=== PATIENT | female | born 1945 | race Caucasian/White ===

== ENCOUNTER 2017-08-05 05:15 | Day surgery (SDC) | payer MEDICARE ==
[2017-08-01 15:35] VITALS: BP 169/79
[~2017-08-05] VITALS: Ht 154.9 cm; Wt 97.0 kg
[~2017-08-05 05:15] MED LIST: ALPR-475 PO; CHOL200074 PO; CITA20TA9 PO; CYCL-259 PO; ENAL20TA68 PO; FLUT12AE INH; HYDR25TA6 PO; IPRA12.9 INH; LANS15CA5 PO; LOPE2CAP PO; LORA10TA3 PO; METO25TA91 PO; OMEG1CAP26 PO; OMEP20TA62 PO; ROSU10TA PO; TRAZ50TA18 PO; UBID50TA3 PO; WARF2TAB7 PO
[2017-08-05] MEDS ORDERED: LACTATED RINGERS 1,000 ML IV SCH (05:58)
[2017-08-05 06:05] VITALS: BP 169/79
[2017-08-05] MEDS ORDERED: NEOSPORIN OINT. PKT 1 PACKET ONE (06:23)
[2017-08-05] MEDS ORDERED: BUPIVACAINE/PF 0.5% ONE (06:23)
[2017-08-05] MEDS ORDERED: BACITRACIN 50,000 UNIT ONE (06:24)
[2017-08-05] MEDS ORDERED: CLINDAMYCIN 150 MG/ML, 6ML ONE (06:41)
[2017-08-05] MEDS ORDERED: MIDAZOLAM 1 MG/ML, 2ML ONE (06:41)
[2017-08-05] MEDS ORDERED: FENTANYL PF 100 MCG/2ML ONE ×2 (06:41→08:20)
[2017-08-05 06:45] LABS: PROTHROMBIN TIME 10.4 Seconds (9.6-11.5)
[2017-08-05] MEDS ORDERED: PROPOFOL 50 ML ONE ×2 (06:52→07:39)
[2017-08-05] MEDS ORDERED: KETOROLAC 30 MG/1 ML ONE (06:53)
[2017-08-05] MEDS ORDERED: MIDAZOLAM 1 MG/ML, 2ML IV PRN (07:30)
[2017-08-05] MEDS ORDERED: ALBUTEROL SULFATE 2.5 MG/3 ML NPPB PRN (07:30)
[2017-08-05] MEDS ORDERED: ACETAMINOPHEN 325 MG TABLET PO PRN (07:30)
[2017-08-05] MEDS ORDERED: ONDANSETRON 2MG/ML, 2ML IVPush PRN (07:30)
[2017-08-05] MEDS ORDERED: hydrALAzine 20 MG/ML, 1ML IV PRN (07:30)
[2017-08-05] MEDS ORDERED: ALBUTEROL/IPRATROPIUM 2.5MG/0.5MG, 3 ML NPPB PRN (07:30)
[2017-08-05] MEDS ORDERED: METOPROLOL 1 MG/ML, 5ML IV PRN (07:30)
[2017-08-05] MEDS ORDERED: HYDROcodone/APAP 7.5-325MG/15ML UDC PO PRN (07:30)
[2017-08-05] MEDS ORDERED: MEPERIDINE/PF 25MG/0.5ML IVPush PRN (07:30)
[2017-08-05] MEDS ORDERED: EPHEDRINE 50 MG/ML, 1ML IVPush PRN (07:30)
[2017-08-05] MEDS ORDERED: OXYcodone 5 MG/5 ML ORAL.SOL UDC PO PRN ×2 (07:30→11:30)
[2017-08-05] MEDS ORDERED: DIAZEPAM 5 MG/ML, 2ML IVPush PRN (07:30)
[2017-08-05] MEDS ORDERED: HYDROmorphone 1 MG/ML, 1ML IV PRN (07:30)
[2017-08-05] MEDS ORDERED: FENTANYL PF 100 MCG/2ML IV PRN (07:30)
[2017-08-05] MEDS ORDERED: LABETALOL 5MG/ML, 20ML IV PRN (07:30)
[2017-08-05] MEDS ORDERED: ACETAMINOPHEN 650 MG/20.3 ML UDC ONE (08:20)
[2017-08-05] MEDS ORDERED: OXYcodone 5 MG/5 ML ORAL.SOL UDC ONE (08:20)
[2017-08-05] MEDS ORDERED: CEFAZOLIN 1,000 MG ONE (10:00)
[2017-08-05] MEDS ORDERED: PROPOFOL 10 MG/ML, 20ML ONE (10:00)
[2017-08-05] MEDS ORDERED: DEXAMETHASONE 4 MG/ML, 1ML ONE (10:00)
[2017-08-05] MEDS ORDERED: ONDANSETRON 2MG/ML, 2ML ONE (10:00)
[2017-08-05] MEDS ORDERED: OXYcodone/APAP 5/325MG TABLET PO PRN (11:30)
== END 2017-08-05 13:35 | disposition home or self-care (01) ==
LOC: OUT 05:15 → MERGE 07:00 → OUT 13:35
PROVIDERS: ATTEND Orthopaedic Surgery
DX: M18.11 Unilateral primary osteoarthritis of first carpometacarpal joint, right hand (principal); J45.909 Unspecified asthma, uncomplicated; K21.9 Gastro-esophageal reflux disease without esophagitis; I25.10 Atherosclerotic heart disease of native coronary artery without angina pectoris; I10 Essential (primary) hypertension; G47.33 Obstructive sleep apnea (adult) (pediatric); Z88.1 Allergy status to other antibiotic agents; Z88.0 Allergy status to penicillin; Z88.8 Allergy status to other drugs, medicaments and biological substances; Z85.3 Personal history of malignant neoplasm of breast
CPT/HCPCS: 25447; 26480; 36415; 73140; 76000; 85610; 85730; C1713; J0690; J1100; J1885; J2250; J2405; J2704; J3010; J3490; J7120

== ENCOUNTER 2017-08-07 17:21 | Inpatient (IN) | payer MEDICARE ==
[~2017-08-07] VITALS: Ht 156.2 cm; Wt 103.4 kg
[2017-08-07] MEDS ORDERED: ONDANSETRON 2MG/ML, 2ML ONE (18:20)
[2017-08-07] MEDS ORDERED: ONDANSETRON 2MG/ML, 2ML IVPush ONE (18:30)
[2017-08-07] MEDS ORDERED: SODIUM CHLORIDE 0.9% 1,000ML IVBOLUS ONE (18:30)
[2017-08-07] MEDS ORDERED: SODIUM CHLORIDE FLUSH 10ML SYR IVF ONE (18:30)
[2017-08-07 18:42] LABS: BASOPHILS # (AUTO) 0.04 x10^3/uL (0-0.1); BASOPHILS % (AUTO) 1 % (0-1); EOSINOPHILS # (AUTO) 0.09 x10^3/uL (0-0.4); EOSINOPHILS % (AUTO) 1 % (1-7); INTERNATIONAL NORMALIZED RATIO 1.03 (0.93-1.1); LYMPHOCYTES # (AUTO) 1.71 x10^3/uL (1-3.4); LYMPHOCYTES % (AUTO) 22 % (22-44); MEAN CORPUSCULAR HEMOGLOBIN 31.5 pg (27.0-34.8); MEAN CORPUSCULAR HGB CONC 33.1 g/dL (32.4-35.8); MEAN CORPUSCULAR VOLUME 95.1 fL (80-100); MEAN PLATELET VOLUME 7.4 fL (7.4-10.4); MONOCYTES # (AUTO) 0.85 x10^3/uL (0.2-0.8); MONOCYTES % (AUTO) 11 % (2-9); NEUTROPHILS # (AUTO) 4.91 x10^3/uL (1.8-6.8); NEUTROPHILS % (AUTO) 65 % (42-75); PLATELET COUNT 233 x10^3/uL (130-400); PROTHROMBIN TIME 10.7 Seconds (9.6-11.5); RED CELL DISTRIBUTION WIDTH 14.5 % (9.6-15.2)
[2017-08-07 18:43] LABS: MD NO
[2017-08-07 18:48] LABS: ALANINE AMINOTRANSFERASE 33 U/L (12-78); ALBUMIN 3.5 g/dL (3.4-5.0); ANION GAP 7 mmol/L (5-15); CALCIUM 8.2 mg/dL (8.5-10.1); CHLORIDE 99 mmol/L (98-107); CREATININE 0.85 mg/dL (0.55-1.02)
[2017-08-07 18:52] LABS: ALKALINE PHOSPHATASE 43 U/L (45-117); BILIRUBIN,TOTAL 0.9 mg/dL (0.2-1.0); TOTAL PROTEIN 6.9 g/dL (6.4-8.2); TROPONIN I 0.038 ng/mL (0.000-0.045)
[2017-08-07] MEDS ORDERED: HYDROmorphone 2 MG/ML, 1ML IVPush ONE (18:53)
[2017-08-07] MEDS ORDERED: HYDROmorphone 2 MG/ML, 1ML ONE (19:16)
[2017-08-07] MEDS ORDERED: methylPREDNISolone SOD SUCC 125 MG/2 ML ONE (19:40)
[2017-08-07] MEDS ORDERED: DIPHENHYDRAMINE 50 MG/ML, 1ML ONE (19:40)
[2017-08-07] MEDS ORDERED: methylPREDNISolone SOD SUCC 125 MG/2 ML IVPush STA (19:40)
[2017-08-07] MEDS ORDERED: DIPHENHYDRAMINE 50 MG/ML, 1ML IVPush ONE (20:00)
[2017-08-07] MEDS ORDERED: OMNIPAQUE 350 MG/ML, 100ML BOTTLE ONE (20:18)
[2017-08-07] MEDS ORDERED: ONDANSETRON 2MG/ML, 2ML IVPush PRN ×2 (21:30→22:00)
[2017-08-07] MEDS ORDERED: LABETALOL 5MG/ML, 20ML IVPush PRN (22:00)
[2017-08-07] MEDS ORDERED: GUAIFENESIN/DM 200-20MG, 10ML UDC PO PRN (22:00)
[2017-08-07] MEDS ORDERED: BISACODYL 10 MG SUPP PR PRN (22:00)
[2017-08-07] MEDS ORDERED: OXYcodone/APAP 5/325MG TABLET PO PRN (22:00)
[2017-08-07] MEDS ORDERED: HYDROcodone/APAP 5/325 TABLET PO PRN (22:00)
[2017-08-07] MEDS ORDERED: ONDANSETRON ODT 4 MG PO PRN (22:00)
[2017-08-07] MEDS ORDERED: CYCLOBENZAPRINE 10 MG TABLET PO PRN (22:30)
[2017-08-07 22:59] VITALS: BP 167/89
[2017-08-07 23:23] LABS: TROPONIN I 0.023 ng/mL (0.000-0.045)
[2017-08-08 00:19] LABS: RAPID INFLUENZA A Negative (Negative); RAPID INFLUENZA B Negative (Negative)
[2017-08-08] MEDS ORDERED: IPRATROPIUM 0.5 MG/2.5 ML INHA NPPB PRN (00:30)
[2017-08-08 01:00] LABS: MICROSCOPIC AUTO
[2017-08-08 01:09] LABS: CULTURE INDICATED? NO
[2017-08-08 02:00] VITALS: BP 143/75
[2017-08-08] MEDS: methylPREDNISolone SOD SUCC 125 MG/2 ML IVPush SCH ×3 (04:31→20:20)
[2017-08-08] MEDS: morphine SULFATE 10 MG/ML, 1ML IVPush PRN ×2 (04:39→10:21)
[2017-08-08 05:46] LABS: MEAN CORPUSCULAR HEMOGLOBIN 31.1 pg (27.0-34.8); MEAN CORPUSCULAR HGB CONC 33.3 g/dL (32.4-35.8); MEAN CORPUSCULAR VOLUME 93.3 fL (80-100); MEAN PLATELET VOLUME 7.8 fL (7.4-10.4); PLATELET COUNT 216 x10^3/uL (130-400); RED CELL DISTRIBUTION WIDTH 14.6 % (9.6-15.2)
[2017-08-08 05:48] LABS: ALBUMIN 3.5 g/dL (3.4-5.0); ANION GAP 7 mmol/L (5-15); CALCIUM 8.5 mg/dL (8.5-10.1); CHLORIDE 102 mmol/L (98-107)
[2017-08-08 05:55] LABS: ALANINE AMINOTRANSFERASE 29 U/L (12-78); ALKALINE PHOSPHATASE 42 U/L (45-117); BILIRUBIN,TOTAL 0.9 mg/dL (0.2-1.0); CREATININE 0.72 mg/dL (0.55-1.02); TOTAL PROTEIN 7.1 g/dL (6.4-8.2); TROPONIN I < 0.015 ng/mL (0.000-0.045)
[2017-08-08] MEDS ORDERED: IPRATROPIUM 0.5 MG/2.5 ML INHA HHN SCH (06:00)
[2017-08-08 06:28] LABS: MD YES
[2017-08-08 06:45] LABS: LYMPH#(MANUAL) 0.34 x10^3/uL (1-3.4); LYMPHS% (MANUAL) 6 % (22-44); MONOS#(MANUAL) 0.11 x10^3/uL (0.3-2.7); MONOS% (MANUAL) 2 % (2-9); SEG#(MANUAL) 5.24 x10^3/uL (1.8-6.8); SEGS% (MANUAL) 92 % (42-75)
[2017-08-08 06:46] LABS: <PLATELET ESTIMATE> ADEQUATE; <PLT MORPHOLOGY> NORMAL PLT MORPH; ANISOCYTOSIS 1+
[2017-08-08] MEDS ORDERED: METOPROLOL SUCCINATE 25 MG TAB.ER.24H PO SCH (09:00)
[2017-08-08 10:05] VITALS: BP 163/91
[2017-08-08] MEDS: OMEPRAZOLE 20 MG CAPSULE.DR PO SCH (10:14)
[2017-08-08] MEDS: SENNA/DOCUSATE TABLET PO SCH (10:14)
[2017-08-08] MEDS: CITALOPRAM 20 MG TABLET PO SCH (10:14)
[2017-08-08] MEDS: CHOLECALCIFEROL 1,000 UNIT TABLET PO SCH (10:14)
[2017-08-08] MEDS: FLUTICASONE FUROATE 100MCG/INH INH SCH (12:05)
[2017-08-08 14:11] VITALS: BP 146/74
[2017-08-08 17:45] LABS: INTERNATIONAL NORMALIZED RATIO 1.06 (0.93-1.1)
[2017-08-08] MEDS ORDERED: WARFARIN 5 MG TABLET PO-COUM ONE (18:00)
[2017-08-08 20:00] VITALS: BP 143/75
[2017-08-08] MEDS ORDERED: TRAZODONE 50MG TABLET PO SCH (21:00)
[2017-08-08] MEDS ORDERED: ATORVASTATIN 20 MG TABLET PO SCH (21:00)
[2017-08-08] MEDS ORDERED: HYDROcodone/APAP 5/325 TABLET PO ONE (21:00)
[2017-08-09] MEDS ORDERED: OXYC-302 PO (01:09)
[2017-08-09 02:00] VITALS: BP 145/80
[2017-08-09] MEDS: METOPROLOL SUCCINATE 25 MG TAB.ER.24H PO SCH ×2 (05:35→08:00)
[2017-08-09] MEDS: methylPREDNISolone SOD SUCC 125 MG/2 ML IVPush SCH ×2 (05:37→13:19)
[2017-08-09 05:42] LABS: INTERNATIONAL NORMALIZED RATIO 1.06 (0.93-1.1)
[2017-08-09 05:48] LABS: BASOPHILS # (AUTO) 0.02 x10^3/uL (0-0.1); BASOPHILS % (AUTO) 0 % (0-1); EOSINOPHILS # (AUTO) 0.02 x10^3/uL (0-0.4); EOSINOPHILS % (AUTO) 0 % (1-7); LYMPHOCYTES # (AUTO) 0.75 x10^3/uL (1-3.4); LYMPHOCYTES % (AUTO) 7 % (22-44); MD NO; MEAN CORPUSCULAR HEMOGLOBIN 31.4 pg (27.0-34.8); MEAN CORPUSCULAR HGB CONC 33.2 g/dL (32.4-35.8); MEAN CORPUSCULAR VOLUME 94.5 fL (80-100); MEAN PLATELET VOLUME 7.9 fL (7.4-10.4); MONOCYTES # (AUTO) 0.36 x10^3/uL (0.2-0.8); MONOCYTES % (AUTO) 3 % (2-9); NEUTROPHILS # (AUTO) 9.93 x10^3/uL (1.8-6.8); NEUTROPHILS % (AUTO) 90 % (42-75); PLATELET COUNT 236 x10^3/uL (130-400); RED BLOOD COUNT 3.94 x10^6/uL (3.82-5.3); RED CELL DISTRIBUTION WIDTH 14.6 % (9.6-15.2)
[2017-08-09 05:52] LABS: CALCIUM 8.7 mg/dL (8.5-10.1); CHLORIDE 103 mmol/L (98-107)
[2017-08-09 05:55] LABS: ANION GAP 6 mmol/L (5-15); CREATININE 0.71 mg/dL (0.55-1.02)
[2017-08-09 07:20] VITALS: BP 140/78
[2017-08-09] MEDS ORDERED: OXYcodone/APAP 5/325MG TABLET PO PRN (09:00)
[2017-08-09] MEDS: OMEPRAZOLE 20 MG CAPSULE.DR PO SCH (09:48)
[2017-08-09] MEDS: SENNA/DOCUSATE TABLET PO SCH (09:48)
[2017-08-09] MEDS: FLUTICASONE FUROATE 100MCG/INH INH SCH (09:48)
[2017-08-09] MEDS: CHOLECALCIFEROL 1,000 UNIT TABLET PO SCH (09:48)
[2017-08-09] MEDS: CITALOPRAM 20 MG TABLET PO SCH (09:48)
[2017-08-09 14:06] VITALS: BP 146/82
[2017-08-09] MEDS ORDERED: WARFARIN 5 MG TABLET PO-COUM ONE ×2 (14:30→18:00)
== END 2017-08-09 16:19 | disposition home or self-care (01) | DRG 291 ==
LOC: ED 22:05 → OBSVTOIN 22:15 → INTOOBSV 22:15 → EDIP 22:15 → 4EST 22:30
PROVIDERS: ADMIT Hospitalist; ATTEND Hospitalist
DX: I11.0 Hypertensive heart disease with heart failure (principal); J96.01 Acute respiratory failure with hypoxia; D68.69 Other thrombophilia; J44.1 Chronic obstructive pulmonary disease with (acute) exacerbation; I50.33 Acute on chronic diastolic (congestive) heart failure; I48.91 Unspecified atrial fibrillation; M19.90 Unspecified osteoarthritis, unspecified site; K21.9 Gastro-esophageal reflux disease without esophagitis; G47.33 Obstructive sleep apnea (adult) (pediatric); E78.5 Hyperlipidemia, unspecified; Z87.891 Personal history of nicotine dependence; Z88.6 Allergy status to analgesic agent; Z88.0 Allergy status to penicillin; Z90.13 Acquired absence of bilateral breasts and nipples; Z85.3 Personal history of malignant neoplasm of breast; Z82.3 Family history of stroke; Z79.899 Other long term (current) drug therapy; Z88.2 Allergy status to sulfonamides; Z88.8 Allergy status to other drugs, medicaments and biological substances; Z91.018 Allergy to other foods; Z91.048 Other nonmedicinal substance allergy status; Z90.49 Acquired absence of other specified parts of digestive tract; Z82.49 Family history of ischemic heart disease and other diseases of the circulatory system
CPT/HCPCS: 36415; 71045; 71275; 80048; 80053; 81001; 83605; 83735; 83880; 84145; 84439; 84484; 85025; 85610; 87040; 87400; 93005; 93306; 94660; 96361; 96374; 96375; J1170; J2405; Q9967; J1200; J2270; J2930; J7030

== ENCOUNTER 2017-08-11 07:26 | Emergency (ER) | payer MEDICARE ==
[~2017-08-11] VITALS: Ht 154.9 cm; Wt 100.0 kg
[~2017-08-11 07:26] MED LIST changes: +OXYC-302 PO
[2017-08-11] MEDS ORDERED: SODIUM CHLORIDE FLUSH 10ML SYR IVF ONE (08:00)
[2017-08-11] MEDS ORDERED: ALBUTEROL/IPRATROPIUM 2.5MG/0.5MG, 3 ML NPPB ONE (08:00)
[2017-08-11 08:13] LABS: BASOPHILS # (AUTO) 0.02 x10^3/uL (0-0.1); BASOPHILS % (AUTO) 0 % (0-1); EOSINOPHILS % (AUTO) 8 % (1-7); LYMPHOCYTES # (AUTO) 1.18 x10^3/uL (1-3.4); LYMPHOCYTES % (AUTO) 11 % (22-44); MD NO; MEAN CORPUSCULAR HEMOGLOBIN 31.4 pg (27.0-34.8); MEAN CORPUSCULAR HGB CONC 33.7 g/dL (32.4-35.8); MEAN CORPUSCULAR VOLUME 93.1 fL (80-100); MEAN PLATELET VOLUME 7.1 fL (7.4-10.4); MONOCYTES # (AUTO) 0.84 x10^3/uL (0.2-0.8); MONOCYTES % (AUTO) 8 % (2-9); NEUTROPHILS # (AUTO) 8.01 x10^3/uL (1.8-6.8); NEUTROPHILS % (AUTO) 73 % (42-75); PLATELET COUNT 273 x10^3/uL (130-400); RED BLOOD COUNT 4.07 x10^6/uL (3.82-5.3); RED CELL DISTRIBUTION WIDTH 14.5 % (9.6-15.2)
[2017-08-11 08:25] LABS: ALANINE AMINOTRANSFERASE 31 U/L (12-78); ALBUMIN 3.1 g/dL (3.4-5.0); ANION GAP 5 mmol/L (5-15); CALCIUM 7.9 mg/dL (8.5-10.1); CHLORIDE 97 mmol/L (98-107); CREATININE 0.73 mg/dL (0.55-1.02)
[2017-08-11] MEDS ORDERED: ALBUTEROL/IPRATROPIUM 2.5MG/0.5MG, 3 ML ONE (08:28)
[2017-08-11 08:30] LABS: ALKALINE PHOSPHATASE 41 U/L (45-117); BILIRUBIN,TOTAL 1.2 mg/dL (0.2-1.0); TOTAL PROTEIN 6.3 g/dL (6.4-8.2); TROPONIN I < 0.015 ng/mL (0.000-0.045)
[2017-08-11] MEDS ORDERED: IPRATROPIUM 0.5 MG/2.5 ML INHA ONE (08:30)
[2017-08-11 09:20] VITALS: BP 134/64
[2017-08-11] MEDS ORDERED: FAMOTIDINE 20 MG TABLET PO ONE (10:30)
[2017-08-11] MEDS ORDERED: OXYcodone/APAP 10/325MG TABLET PO ONE (10:30)
[2017-08-11] MEDS ORDERED: OXYcodone/APAP 10/325MG TABLET ONE (10:48)
[2017-08-11] MEDS ORDERED: FAMOTIDINE 20 MG TABLET ONE (10:48)
== END 2017-08-11 11:00 ==
LOC: ED 08:41
DX: J98.01 Acute bronchospasm (principal); J44.9 Chronic obstructive pulmonary disease, unspecified; I10 Essential (primary) hypertension; I48.91 Unspecified atrial fibrillation; J45.909 Unspecified asthma, uncomplicated
CPT/HCPCS: 36415; 71045; 80053; 83880; 84484; 85025; 93005; 94640; 99285; J7512; J7620

== ENCOUNTER → 2020-05-25 | Outpatient (CLI) | payer MEDICARE ==
[~2020-05-25] MED LIST changes: -ALPR-475 PO; +ALPR0.5T7 PO; +LORA-247 PO; -LORA10TA3 PO; -ROSU10TA PO; +ROSU10TA2 PO; -TRAZ50TA18 PO; +TRAZ50TA66 PO; -WARF2TAB7 PO; +WARF2TAB99 PO
== END | disposition home or self-care (01) ==
LOC: CVU 10:53
PROVIDERS: ATTEND Physician Assistant Medical
DX: I35.8 Other nonrheumatic aortic valve disorders (principal); I10 Essential (primary) hypertension; R06.00 Dyspnea, unspecified; R07.89 Other chest pain
CPT/HCPCS: 93306

== ENCOUNTER 2020-06-06 09:54 | Emergency (ER) | payer MEDICARE ==
[~2020-06-06] VITALS: Ht 162.6 cm; Wt 99.2 kg
[2020-06-06] MEDS ORDERED: SODIUM CHLORIDE 0.9% 1,000ML IVBOLUS ONE (10:30)
--- NOTE | 2020-06-06 10:44 | NUR ---
THIS IS A 75 YO F W/ C/O BLACK TARRY STOOL STARTING THIS MORNING. PT REPORTS HX OF DIARRHEA HOWEVER BLOOD CONCERNED HER THIS MORNING. PT HAD EPISODE OF BOWEL INCONTINENCE WHILE WAITING IN LOBBY. PT PROVIDED W/ GOWN AND BRIEF. PT REPORTS TAKING WARFARIN AT HOME. PT RESP EVEN AND UNLABORED, JACK.
--- NOTE | 2020-06-06 10:54 | NUR ---
PIV STARTED, LABS DRAWN AND PT MEDICATED PER EMAR. PT RESTING ON GURNEY W/ CALL LIGHT IN REACH AND SIDE RAILS UPX2. RESP EVEN AND UNLABORED, JACK.
[2020-06-06] MEDS ORDERED: ONDANSETRON 2MG/ML, 2ML ONE (10:55)
[2020-06-06] MEDS ORDERED: ONDANSETRON 2MG/ML, 2ML IVPush ONE (11:00)
[2020-06-06 11:08] LABS: INTERNATIONAL NORMALIZED RATIO 3.26 (0.93-1.1); PROTHROMBIN TIME 34.2 Seconds (9.6-11.5)
[2020-06-06 11:09] LABS: BASOPHILS % (AUTO) 1 % (0-1); EOSINOPHILS % (AUTO) 1 % (1-7); LYMPHOCYTES % (AUTO) 17 % (22-44); MEAN CORPUSCULAR HEMOGLOBIN 30.7 pg (27.0-34.8); MEAN CORPUSCULAR HGB CONC 33.1 g/dL (32.4-35.8); MEAN PLATELET VOLUME 7.2 fL (7.4-10.4); MONOCYTES % (AUTO) 8 % (2-9); NEUTROPHILS % (AUTO) 73 % (42-75); PLATELET COUNT 270 x10^3/uL (130-400); RED BLOOD COUNT 4.57 x10^6/uL (3.82-5.3); RED CELL DISTRIBUTION WIDTH 14.7 % (9.6-15.2)
[2020-06-06 11:11] LABS: MD NO
[2020-06-06 11:13] LABS: ALANINE AMINOTRANSFERASE 32 U/L (12-78); ANION GAP 7 mmol/L (5-15); CALCIUM 9.3 mg/dL (8.5-10.1); CHLORIDE 99 mmol/L (98-107)
--- NOTE | 2020-06-06 11:14 | NUR ---
PT ASSISTED TO BEDSIDE COMMODE.
[2020-06-06 11:15] LABS: ALKALINE PHOSPHATASE 46 U/L (45-117); CREATININE 0.93 mg/dL (0.55-1.02); TOTAL PROTEIN 7.6 g/dL (6.4-8.2)
--- NOTE | 2020-06-06 11:19 | NUR ---
PT REPORTS UNABLE TO HAVE BM AND JUST PASSED GAS, WOULD LIKE TO WALK AROUND ROOM AND TRY AGAIN. RESP EVEN AND UNLABORED, JACK.
--- NOTE | 2020-06-06 11:42 | NUR ---
PT REPORTS TAKING PEPTO BISMOL THIS MORNING AT 0400 AND TWICE YESTERDAY.
[2020-06-06 11:53] VITALS: BP 102/61
--- NOTE | 2020-06-06 13:00 | NUR ---
Patient given discharge instructions and they have confirmed that they understand the instructions. Patient ambulatory with steady gait.
== END 2020-06-06 13:08 | disposition home or self-care (01) ==
LOC: ED 13:06
DX: K92.2 Gastrointestinal hemorrhage, unspecified (principal); I10 Essential (primary) hypertension; I48.91 Unspecified atrial fibrillation; J44.9 Chronic obstructive pulmonary disease, unspecified; Z87.891 Personal history of nicotine dependence; Z79.01 Long term (current) use of anticoagulants
CPT/HCPCS: 36415; 80053; 85025; 85610; 86850; 86900; 96361; 96374; 99283; J2405; J7030; 99284

== ENCOUNTER → 2020-10-18 | Outpatient (CLI) | payer MEDICARE ==
[~2020-10-18] MED LIST changes: -CYCL-259 PO; +CYCL10TA2 PO; -OXYC-302 PO; +OXYC1TAB14 PO
== END | disposition home or self-care (01) ==
LOC: CVU 12:48
PROVIDERS: ATTEND Surgery
DX: M79.621 Pain in right upper arm (principal)
CPT/HCPCS: 93931

== ENCOUNTER 2020-10-31 12:54 | Observation (INO) | payer MEDICARE ==
[~2020-10-31] VITALS: Ht 157.5 cm; Wt 99.4 kg
--- NOTE | 2020-10-31 13:44 | NUR ---
KEY OPERATOR: PT TO ROOM FROM LOBBY VIA W/C
--- NOTE | 2020-10-31 14:00 | NUR ---
PT HIGHLY IRRITABLE AT THIS TIME. PT STATES "TAKING MY BLOOD PRESSURE IS NOT NECESSARY." PT EDUCATED ON IMPORTANCE OF VITAL SIGNS FOR TREATMENT. PT RESTING IN RLUBBOCK, MONITORING IN PLACE, WCTM.
--- NOTE | 2020-10-31 14:10 | NUR ---
PT ASSISTED TO RESTROOM AT THIS TIME. PT ABLE TO AMBULATE STEADILY AND INDEPENDENTLY.
[2020-10-31 14:20] LABS: BASOPHILS % (AUTO) 1 % (0-1); EOSINOPHILS % (AUTO) 2 % (1-7); LYMPHOCYTES % (AUTO) 32 % (22-44); MD NO; MEAN CORPUSCULAR HEMOGLOBIN 31.3 pg (27.0-34.8); MEAN CORPUSCULAR HGB CONC 33.3 g/dL (32.4-35.8); MEAN PLATELET VOLUME 7.6 fL (7.4-10.4); MONOCYTES % (AUTO) 10 % (2-9); NEUTROPHILS % (AUTO) 55 % (42-75); PLATELET COUNT 245 x10^3/uL (130-400); RED BLOOD COUNT 4.39 x10^6/uL (3.82-5.3); RED CELL DISTRIBUTION WIDTH 14.5 % (9.6-15.2)
[2020-10-31 14:31] LABS: ALANINE AMINOTRANSFERASE 19 U/L (12-78); ANION GAP 6 mmol/L (5-15); CHLORIDE 102 mmol/L (98-107); CREATININE 0.83 mg/dL (0.55-1.02)
[2020-10-31 14:36] LABS: ALKALINE PHOSPHATASE 43 U/L (45-117); BILIRUBIN,TOTAL 0.7 mg/dL (0.2-1.0); TOTAL PROTEIN 7.3 g/dL (6.4-8.2); TROPONIN I < 0.015 ng/mL (0.000-0.045)
[2020-10-31 14:40] LABS: INTERNATIONAL NORMALIZED RATIO 2.57 (0.93-1.1)
--- NOTE | 2020-10-31 15:11 | NUR ---
PT RESTING IN JACK TORRES AT THIS TIME, MONITORING IN PLACE, WCTM.
--- NOTE | 2020-10-31 15:25 | NUR ---
PT PROVIDED SOCKS AND THIS RN ASSISTED HER WITH PUTTING THEM ON. PT AMBULATED TO RESTROOM, WHILE IN HALLWAY PT YELLING "I HAVE BEEN HERE FOR TWO FUCKING HOURS." PT HIGHLY IRRITABLE, REDIRECTED TO RESTROOM.
--- NOTE | 2020-10-31 15:27 | NUR ---
PER PROVIDER IT IS OKAY FOR PT TO EAT. ED DIET TRAY ORDERED.
[2020-10-31] MEDS ORDERED: LORazepam 1MG TABLET ONE (15:30)
[2020-10-31] MEDS ORDERED: LORazepam 1MG TABLET PO ONE (15:30)
--- NOTE | 2020-10-31 15:55 | NUR ---
PT PROVIDED MEAL TRAY.
[2020-10-31] MEDS: IPRATROPIUM HFA 17 MCG/INH INH SCH ×3 (16:00→21:00)
[2020-10-31] MEDS ORDERED: CYCLOBENZAPRINE 10 MG TABLET PO PRN (16:00)
[2020-10-31 17:32] VITALS: BP 174/90
[2020-10-31] MEDS ORDERED: WARFARIN 2.5 MG TABLET PO-COUM ONE (18:00)
[2020-10-31] MEDS: OXYcodone/APAP 5/325MG TABLET PO SCH (18:06)
[2020-10-31 18:12] VITALS: BP 179/80
[2020-10-31 18:59] VITALS: BP 166/77
[2020-10-31] MEDS ORDERED: TRAZODONE 50MG TABLET PO SCH (21:00)
[2020-10-31] MEDS ORDERED: BUDESONIDE 0.5 MG/2 ML INHA NPPB SCH (21:00)
[2020-10-31] MEDS ORDERED: ATORVASTATIN 40 MG TABLET PO SCH (21:00)
[2020-10-31] MEDS: ENALAPRIL 20MG TABLET PO SCH (21:16)
[2020-10-31] MEDS ORDERED: LOPE2TAB26 PO (22:11)
[2020-10-31] MEDS ORDERED: Vit D (22:11)
[2020-10-31] MEDS ORDERED: AMLO2.5T5 PO (22:11)
[2020-10-31 22:19] VITALS: BP 162/74
[2020-11-01] MEDS: OXYcodone/APAP 5/325MG TABLET PO SCH ×4 (00:35→17:57)
[2020-11-01 00:39] VITALS: BP 150/71
[2020-11-01 05:24] LABS: TROPONIN I < 0.015 ng/mL (0.000-0.045)
[2020-11-01 05:25] LABS: INTERNATIONAL NORMALIZED RATIO 2.48 (0.93-1.1); PROTHROMBIN TIME 26.1 Seconds (9.6-11.5)
[2020-11-01] MEDS: OMEPRAZOLE 20 MG CAPSULE.DR PO SCH ×2 (06:00→06:44)
[2020-11-01] MEDS: IPRATROPIUM HFA 17 MCG/INH INH SCH ×3 (06:50→15:40)
[2020-11-01] MEDS ORDERED: FLUTICASONE FUROATE 100MCG/INH INH SCH (09:00)
[2020-11-01] MEDS ORDERED: CITALOPRAM 20 MG TABLET PO SCH (09:00)
[2020-11-01] MEDS ORDERED: METOPROLOL SUCCINATE 25 MG TAB.ER.24H PO SCH (09:00)
[2020-11-01] MEDS ORDERED: HYDROCHLOROTHIAZIDE 12.5 MG CAPSULE PO SCH (09:00)
[2020-11-01] MEDS: ENALAPRIL 20MG TABLET PO SCH ×2 (09:00→16:32)
[2020-11-01 09:05] VITALS: BP 154/82
[2020-11-01] MEDS ORDERED: REGADENOSON 0.4 MG/5 ML SYRINGE ONE (11:40)
[2020-11-01 14:26] VITALS: BP 158/73
[2020-11-01] MEDS ORDERED: LISI30TA4 PO (16:45)
[2020-11-01] MEDS ORDERED: WARFARIN 2.5 MG TABLET PO-COUM ONE (18:00)
== END 2020-11-01 18:36 | disposition home or self-care (01) ==
LOC: ED 15:18 → EDIP 15:25 → INTOOBSV 15:25 → ED 15:40 → 5SO 16:40
PROVIDERS: ADMIT Internal Medicine; ATTEND Internal Medicine
DX: R07.89 Other chest pain (principal); G89.29 Other chronic pain; I10 Essential (primary) hypertension; I48.20 Chronic atrial fibrillation, unspecified; I48.0 Paroxysmal atrial fibrillation; E78.5 Hyperlipidemia, unspecified; G47.30 Sleep apnea, unspecified; J44.9 Chronic obstructive pulmonary disease, unspecified; K21.9 Gastro-esophageal reflux disease without esophagitis; F41.9 Anxiety disorder, unspecified; F13.20 Sedative, hypnotic or anxiolytic dependence, uncomplicated; Z85.3 Personal history of malignant neoplasm of breast; Z88.0 Allergy status to penicillin; Z79.01 Long term (current) use of anticoagulants; Z79.899 Other long term (current) drug therapy; Z90.13 Acquired absence of bilateral breasts and nipples; Z87.891 Personal history of nicotine dependence; Z91.040 Latex allergy status
CPT/HCPCS: 36415; 71045; 78452; 80053; 83880; 84443; 84484; 85025; 85610; 93005; 93017; 94640; 94660; 99285; A9502; G0378; J2785